=== PATIENT | male | born 1995 | race African-American/Black ===

== ENCOUNTER 2018-05-05 22:49 | Emergency (ER) | payer MEDICAID ==
[~2018-05-05] VITALS: Ht 182.9 cm; Wt 105.9 kg
--- NOTE | 2018-05-05 23:40 | NUR ---
pt medicated with ibuprofen. pt resting with no needs at this time. call light in reach
[2018-05-05] MEDS ORDERED: IBUPROFEN 200 MG TABLET ONE (23:57)
[2018-05-06] MEDS ORDERED: IBUPROFEN 600 MG TABLET PO ONE
[2018-05-06] MEDS ORDERED: DEXAMETHASONE 4 MG TABLET ONE (00:20)
[2018-05-06 00:25] VITALS: BP 131/82
--- NOTE | 2018-05-06 00:25 | NUR ---
pt given decadron. vss. waiting for lab results.
[2018-05-06] MEDS ORDERED: DEXAMETHASONE 4 MG TABLET PO ONE (00:30)
== END 2018-05-06 01:21 | disposition home or self-care (01) ==
LOC: ED 23:22
DX: J06.9 Acute upper respiratory infection, unspecified (principal)
CPT/HCPCS: 36415; 86308; 87081; 87880; 99283

== ENCOUNTER 2020-07-26 12:20 | Emergency (ER) | payer MEDICAID ==
[~2020-07-26] VITALS: Ht 180.3 cm; Wt 107.7 kg
[2020-07-26 12:23] VITALS: BP 146/85
--- NOTE | 2020-07-26 12:37 | NUR ---
PT AMBULATED TO ROOM FROM TRIAGE. PT STATED THAT HE IS HERE FOR "A REFERRAL FOR A TONSILLECTOMY." PT DENIES ANY SORE THROAT, FEVER OR DIFFICULTY SWALLOWING. PT STATED THAT HE HAS STREP THROAT LAST YEAR AND NOW HE HAS "BIG TONSILS."
--- NOTE | 2020-07-26 13:34 | NUR ---
DISCHARGE INSTRUCTIONS REVIEWED WITH PT. ALL QUESTIONS ANSWERED AT THIS TIME.
== END 2020-07-26 13:37 | disposition home or self-care (01) ==
LOC: ED 13:20
DX: J35.01 Chronic tonsillitis (principal)
CPT/HCPCS: 87081; 87880; 99283